=== PATIENT | male | born 1945 | race Caucasian/White ===

== ENCOUNTER 2018-10-18 17:18 | Emergency (ER) | payer MEDICARE, OTHER ==
[2018-10-18 17:59] LABS: ADD MAN DIFF? NO
[2018-10-18 18:01] LABS: WHITE BLOOD COUNT 7.6 10^3/ul (4.8-10.8)
[2018-10-18 18:01] LABS: BASOPHILS % 0.5 % (0.0-2.0); EOSINOPHILS # 0.1 10^3/ul (0.0-0.5); EOSINOPHILS % 1.5 % (0.0-7.0); HEMATOCRIT 36.6 % (42.0-52.0); LYMPHOCYTES # 1.5 10^3/ul (0.8-2.9); LYMPHOCYTES % 19.3 % (15.0-51.0); MEAN CORPUSCULAR HEMOGLOBIN 29.9 pg (29.0-33.0); MEAN CORPUSCULAR HGB CONC 32.8 g/dl (32.0-37.0); MEAN PLATELET VOLUME 9.2 fl (7.4-10.4); MONOCYTE # 0.7 10^3/ul (0.3-0.9); MONOCYTES % 9.5 % (0.0-11.0); NEUTROPHIL # 5.2 10^3/ul (1.6-7.5); NEUTROPHILS % 68.8 % (39.0-77.0); PLATELET COUNT 256 10^3/UL (140-415); RED BLOOD COUNT 4.02 10^6/ul (4.70-6.10); RED CELL DISTRIBUTION WIDTH 13.3 % (11.5-14.5)
[2018-10-18] MEDS: SOD CHLORIDE 0.9% 1,000 ML IV (18:16)
[2018-10-18 18:19] LABS: ANION GAP 12 (5-13); BLOOD UREA NITROGEN 17 mg/dl (7-20); CALCIUM 9.4 mg/dl (8.4-10.2); CARBON DIOXIDE 24 mmol/L (21-31); CHLORIDE 105 mmol/L (97-110); GLUCOSE 95 mg/dl (70-220); POTASSIUM 3.9 mmol/L (3.5-5.1); SODIUM 141 mmol/L (135-144)
[2018-10-18 18:30] LABS: TROPONIN-I < 0.012 ng/ml (0.000-0.120)
== END 2018-10-18 20:40 | disposition home or self-care (01) ==
LOC: E/R 17:18
DX: R00.2 Palpitations (principal); R53.1 Weakness; R06.02 Shortness of breath; I10 Essential (primary) hypertension; I25.10 Atherosclerotic heart disease of native coronary artery without angina pectoris
CPT/HCPCS: 71045; 80048; 84484; 85025; 99285-25

== ENCOUNTER 2019-03-30 12:34 | Emergency (ER) | payer MEDICARE, OTHER ==
[2019-03-30 15:25] LABS: ADD MAN DIFF? NO
[2019-03-30 15:28] LABS: WHITE BLOOD COUNT 7.6 10^3/ul (4.8-10.8)
[2019-03-30 15:28] LABS: BASOPHILS % 0.4 % (0.0-2.0); EOSINOPHILS # 0.1 10^3/ul (0.0-0.5); EOSINOPHILS % 1.6 % (0.0-7.0); HEMATOCRIT 42.2 % (42.0-52.0); HEMOGLOBIN 14.2 g/dl (14.0-18.0); LYMPHOCYTES # 3.1 10^3/ul (0.8-2.9); LYMPHOCYTES % 40.4 % (15.0-51.0); MEAN CORPUSCULAR HEMOGLOBIN 29.5 pg (29.0-33.0); MEAN CORPUSCULAR HGB CONC 33.6 g/dl (32.0-37.0); MEAN CORPUSCULAR VOLUME 87.6 fl (82.0-101.0); MEAN PLATELET VOLUME 9.7 fl (7.4-10.4); MONOCYTE # 0.7 10^3/ul (0.3-0.9); MONOCYTES % 9.2 % (0.0-11.0); NEUTROPHIL # 3.7 10^3/ul (1.6-7.5); NEUTROPHILS % 48.1 % (39.0-77.0); PLATELET COUNT 249 10^3/UL (140-415); RED BLOOD COUNT 4.82 10^6/ul (4.70-6.10); RED CELL DISTRIBUTION WIDTH 13.4 % (11.5-14.5)
[2019-03-30 15:47] LABS: INR 1.74; PROTIME 20.4 Sec (11.9-14.9); PT RATIO 1.6
[2019-03-30 15:48] LABS: PLATELET COUNT 249 10^3/UL (140-415)
[2019-03-30 15:48] LABS: PARTIAL THROMBOPLASTIN TIME 35.9 Sec (23.0-35.0); THROMBIN TIME 16.5 SEC (13.8-19.1)
[2019-03-30 15:55] LABS: ANION GAP 9 (5-13); BLOOD UREA NITROGEN 27 mg/dl (7-20); CALCIUM 9.5 mg/dl (8.4-10.2); CARBON DIOXIDE 28 mmol/L (21-31); CHLORIDE 102 mmol/L (97-110); GLUCOSE 84 mg/dl (70-220); POTASSIUM 4.5 mmol/L (3.5-5.1); SODIUM 139 mmol/L (135-144)
[2019-03-30 16:06] LABS: TROPONIN-I < 0.012 ng/ml (0.000-0.120)
== END 2019-03-30 16:33 | disposition home or self-care (01) ==
LOC: FTE 12:34
DX: M79.602 Pain in left arm (principal); I10 Essential (primary) hypertension; I25.10 Atherosclerotic heart disease of native coronary artery without angina pectoris; F17.210 Nicotine dependence, cigarettes, uncomplicated; Z98.61 Coronary angioplasty status
CPT/HCPCS: 36415; 71045; 80048; 84484; 85025; 85049; 85610; 85670; 85730; 93005; 99285-25

== ENCOUNTER 2019-07-20 16:34 | Emergency (ER) | payer SELFPAY, OTHER, MEDICARE | END 2019-07-20 18:58 | disposition left against medical advice (07) | LOC: E/R 16:34 | DX: Z53.21 Procedure and treatment not carried out due to patient leaving prior to being seen by health care provider (principal) | CPT/HCPCS: 93005 ==

== ENCOUNTER 2019-07-20 22:32 | Emergency (ER) | payer MEDICARE, OTHER ==
[2019-07-20 23:53] LABS: AMPHETAMINE/METHAMPHETAMINE Negative (NEGATIVE); BARBITURATES Negative (NEGATIVE); BENZODIAZEPINES Negative (NEGATIVE); CANNABINOIDS Negative (NEGATIVE); COCAINE Negative (NEGATIVE); OPIATES Negative (NEGATIVE)
== END 2019-07-21 00:41 | disposition home or self-care (01) ==
LOC: FTE 07-21 00:41
DX: T18.9XXA Foreign body of alimentary tract, part unspecified, initial encounter (principal); I25.10 Atherosclerotic heart disease of native coronary artery without angina pectoris; X58.XXXA Exposure to other specified factors, initial encounter; Y92.9 Unspecified place or not applicable; Z98.61 Coronary angioplasty status
CPT/HCPCS: 80307; 99283